=== PATIENT | male | born 1965 | race Caucasian/White ===

== ENCOUNTER 2017-12-17 14:44 | Emergency (ER) | payer SELFPAY ==
[2017-12-17 14:51] VITALS: BP 181/86; BMI 29.9
[2017-12-17] MEDS ORDERED: TORADOL 60 MG VIAL IM ONE (15:23)
[2017-12-17] MEDS ORDERED: NORFLEX INJ IM ONE (15:23)
--- NOTE | 2017-12-17 15:23 | DR.EXTPAIN ---
HPI - PCP Primary Care Physician: NA - Complaint/Symptoms Chief Complaint:: PT EXP HAVING A NECK FUSION A YEAR AGO AND C/O NECK PAIN, AND PT STATES " KICKED ME OUT AND I HAVE NOT SEEN MY KIDS IN 2 WEEKS AND I HAVE BEEN THIKING BAD THOUGHTS" Self Treatment fo Chief Complaint: PT DENIES HOMICIDAL AND SUICIDAL IDEATIONS OR AUDITORY OR VISUAL HALLUNICATIONS,,,, PT STATES " I FEEL HOPLESS AND HELPLESS ".. BR - Nurses notes reviewed Nurses Notes Review: Yes - Source History Provided: Patient - Mode of arrival Mode of Arrival: Ambulatory - Timing Onset of Chief Complaint: 12/16/17 PMH - PMH Past Medical History: Yes Past Medical History: Hypertension Past Surgical History: Yes Past Surgical History Comment: C2-C6 FUSION, TIMES. 2 - Family History History of Family Medical Conditions: No - Social History Does patient currently use any type of tobacco product: No Have you used tobacco products in the last 12 months: No Type of Tobacco Use: None Does any household member use tobacco: No Alcohol Use: None Do you use any recreational Drugs:: No Lives With: Family Lives Where: Home - infectious screening In the last 2 months have you had wt loss of >10#?: NO Have you had fever, night sweats or hemotysis?: No Have you traveled outside the country in the last 6 months?: No Isolation: Standard PE - Vital Signs Vitals: Temperature 96.5 F Pulse Rate 102 Respiratory Rate 20 Blood Pressure 181/86 O2 Sat by Pulse Oximetry 95 - Diagnosis Discharge Problem: Cervical pain, Cervical sprain, Cervical strain - Discharge Plan Condition: Stable Prescriptions: Cyclobenzaprine HCl [FLEXERIL 10 MG *] 10 mg PO TID PRN #20 tab PRN Reason: Ibuprofen [MOTRIN TAB 800 MG *] 800 mg PO Q8H PRN #30 tab PRN Reason: Pain/Inflammation - Follow ups/Referrals Follow ups/Referrals: NFD,None [Primary Care Provider] - 3 days - Instructions Instructions: Cervical Sprain, [id number], Muscle Strain, [id number], Musculoskeletal Pain Additional Instructions: RETURN TO ED IF WORSE.
[2017-12-17] MEDS ORDERED: NORFLEX INJ ONE (15:54)
[2017-12-17] MEDS ORDERED: TORADOL 60 MG VIAL ONE (15:54)
--- NOTE | 2017-12-17 16:31 | RAD ---
HISTORY: Neck pain. Study: 6 views of the cervical spine. Comparison: None. Findings: Patient is status post anterior cervical fusion at C3 through C5 and C6 through C7 with associated pl ate/screw fixation and disc spacers. The visualized hardware appears intact. Fusion also appears at C 5-C6. No acute fracture or listhesis. Multilevel degenerative changes of the other cervical levels. B ilateral multilevel mild to moderate neural foraminal narrowing. 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 The dens is intact. The prevertebral soft tissues and lung apices appear normal. IMPRESSION: Chronic findings as above. Reported By:
== END 2017-12-17 16:48 | disposition home or self-care (01) ==
LOC: ER 14:58
DX: S13.4XXA Sprain of ligaments of cervical spine, initial encounter (principal); S16.1XXA Strain of muscle, fascia and tendon at neck level, initial encounter; M54.2 Cervicalgia
CPT/HCPCS: 72050; 96372; 99282; 99283; J1885; J2360